=== PATIENT | female | born 2000 | race Caucasian/White ===

== ENCOUNTER 2018-07-23 15:28 | Emergency (ER) | payer OTHER ==
[2018-07-23 16:30] VITALS: BP 136/68
--- NOTE | 2018-07-23 16:58 | UC ---
Complaint Female HPI - HPI Summary HPI Summary: The patient is a 18-year-old female that presents here with dysuria times about 24 hours. She also has urgency and frequency. She states that she has had a vaginal discharge. She denies any fever or chills. She has had Bv in the past. She wants to do a self SwaB to test for BV as well as trICH. She has had no nausea vomiting or diarrhea. She states she has taken Keflex in the past without any problems. She requests a liquid antibiotic. - History Of Current Complaint Chief Complaint: UCGU Stated Complaint: URINARY Time Seen by Provider: 07/23/18 16:28 Hx Obtained From: Patient Hx Last Menstrual Period: 07/12/18 Onset/Duration: Gradual Onset, Lasting Days Timing: Constant Severity Initially: Moderate Severity Currently: None Pain Intensity: 8 - when urinating Pain Scale Used: 0-10 Numeric Character: Burning Aggravating Factor(s): Urination Alleviating Factor(s): Nothing Associated Signs And Symptoms: Positive: Vaginal Discharge. Negative: Fever, Back Pain, Vaginal Bleeding/Discharge, Nausea, Vomiting(# Of Episodes =), Genital Swelling, Genital Blisters, Retained Foregin Body (Specify) - Allergies/Home Medications Allergies/Adverse Reactions: Allergies Allergy/AdvReac Type Severity Reaction Status Date / Time Penicillins Allergy Severe Anaphylatic Verified 07/23/18 16:31 Shock sulfamethoxazole Allergy Intermediate Hives Verified 07/23/18 16:31 [From Bactrim] trimethoprim [From Bactrim] Allergy Intermediate Hives Verified 07/23/18 16:31 PMH/Surg Hx/FS Hx/Imm Hx Previously Healthy: Yes - Surgical History Surgical History: Yes Surgery Procedure, Year, and Place: finger - age 3 - Family History Known Family History: Positive: Hypertension - Social History Alcohol Use: Occasionally Substance Use Type: None Smoking Status (MU): Never Smoked Tobacco Review of Systems All Other Systems Reviewed And Are Negative: Yes Constitutional: Positive: Negative Skin: Positive: Negative Eyes: Positive: Negative ENT: Positive: Negative Respiratory: Positive: Negative Cardiovascular: Positive: Negative Gastrointestinal: Positive: Negative Genitourinary: Positive: Dysuria, Frequency, Urgency, Vaginal/Penile Discharge Motor: Positive: Negative Neurovascular: Positive: Negative Musculoskeletal: Positive: Negative Neurological: Positive: Negative Psychological: Positive: Negative Physical Exam Triage Information Reviewed: Yes Appearance: Well-Appearing, No Pain Distress, Well-Nourished Vital Signs: Initial Vital Signs Temp 98.4 F 07/23/18 16:26 Pulse 76 07/23/18 16:26 Resp 20 07/23/18 16:26 BP 136/68 07/23/18 16:26 Pulse Ox 100 07/23/18 16:26 Vital Signs Reviewed: Yes Eyes: Positive: Conjunctiva Clear ENT: Positive: Hearing grossly normal. Negative: Nasal congestion, Nasal drainage, Trismus, Muffled voice, Hoarse voice Neck: Positive: Supple, Nontender, No Lymphadenopathy Respiratory: Positive: Lungs clear, Normal breath sounds, No respiratory distress, No accessory muscle use Cardiovascular: Positive: RRR, No Murmur Musculoskeletal: Positive: ROM Intact, No Edema Neurological: Positive: Alert, Muscle Tone Normal Psychological Exam: Normal Skin Exam: Normal Diagnostics - Laboratory Diagnostic Studies Completed/Ordered: UA ++ leuks Complaint Female Dx - Differential Dx/Diagnosis Provider Diagnosis: Dysuria Discharge - Sign-Out/Discharge Documenting (check all that apply): Patient Departure All imaging exams completed and their final reports reviewed: No Studies - Discharge Plan Condition: Stable Disposition: HOME Patient Education Materials: Dysuria (ED) Referrals: Yoni Jaffe PA [Primary Care Provider] - 3 Days (if not better) - Billing Disposition and Condition Condition: STABLE Disposition: Home
--- NOTE | 2018-07-25 07:12 | UC ---
- Progress Note Progress Note: uine + E coli Pt on cephalexin await sensitivity no change [id number] 07/25/18 Course/Dx - Diagnoses Provider Diagnoses: Dysuria Discharge - Sign-Out/Discharge Documenting (check all that apply): Post-Discharge Follow Up All imaging exams completed and their final reports reviewed: No Studies - Discharge Plan Condition: Stable Disposition: HOME Prescriptions: Cephalexin SUSP* [Keflex SUSP 250 MG/5 ML*] 500 mg PO BID #100 oral.susp Patient Education Materials: Dysuria (ED) Referrals: Yoni Jaffe PA [Primary Care Provider] - 3 Days (if not better) Additional Instructions: tests pending - Billing Disposition and Condition Condition: STABLE Disposition: Home
--- NOTE | 2018-07-25 07:16 | UC ---
- Progress Note Progress Note: + Gardnerella neg trich neg manuel sent Rx Flagyl please call pt confirm not before starting medication d/w pt no ETOH 48 hours before and after taking med Course/Dx - Diagnoses Provider Diagnoses: Dysuria Discharge - Sign-Out/Discharge Documenting (check all that apply): Post-Discharge Follow Up All imaging exams completed and their final reports reviewed: No Studies - Discharge Plan Condition: Stable Disposition: HOME Prescriptions: Cephalexin SUSP* [Keflex SUSP 250 MG/5 ML*] 500 mg PO BID #100 oral.susp metroNIDAZOLE [Flagyl] 500 mg PO BID #14 tablet Patient Education Materials: Dysuria (ED) Referrals: Yoni Jaffe PA [Primary Care Provider] - 3 Days (if not better) Additional Instructions: tests pending - Billing Disposition and Condition Condition: STABLE Disposition: Home
== END 2018-07-23 17:12 | disposition home or self-care (01) ==
LOC: UCCORT 15:28
DX: R30.0 Dysuria (principal); Z88.0 Allergy status to penicillin; Z88.1 Allergy status to other antibiotic agents
CPT/HCPCS: 81003; 87077; 87086; 87186; 87480; 87491; 87510; 87591; 87660; 99212; G0463

== ENCOUNTER 2018-12-16 12:49 | Emergency (ER) | payer OTHER ==
[2018-12-16 13:24] VITALS: BP 131/111
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
[2018-12-17 09:43] LABS: Hepatitis C Antibody Nonreactive (Nonreactive)
[2018-12-17 12:57] LABS: Neisseria gonorrhoeae (GC) RNA Negative (Negative)
== END 2018-12-16 14:02 | disposition home or self-care (01) ==
LOC: UCCORT 12:49
DX: Z20.2 Contact with and (suspected) exposure to infections with a predominantly sexual mode of transmission (principal); Z88.0 Allergy status to penicillin; Z88.2 Allergy status to sulfonamides; Z88.8 Allergy status to other drugs, medicaments and biological substances
CPT/HCPCS: 36415; 81003; 84702; 86703; 86780; 86803; 87480; 87491; 87510; 87591; 87660; 99211; G0463

== ENCOUNTER 2019-02-25 11:38 | Emergency (ER) | payer OTHER ==
[2019-02-25 12:04] VITALS: BP 136/81
--- NOTE | 2019-02-25 12:38 | UC ---
Complaint Female HPI - HPI Summary HPI Summary: pt. is here for STD testings recent dx of Chlamydia , was placed on zithromax has mild dysuria but no vaginal discharge, no pelvic pain , no vaginal lesions requesting to be tested for Hep B, C, HIV, HSV 1/2 T. Vaginalis - History Of Current Complaint Chief Complaint: UCGU Stated Complaint: PERSONAL Time Seen by Provider: 02/25/19 12:09 Hx Obtained From: Patient Hx Last Menstrual Period: DOES NOT HAVE REG PERIODS, USES DEPO ?: No Onset/Duration: Gradual Onset, Lasting Days - 3, Resolved Timing: Constant Severity Initially: Mild Severity Currently: Mild Pain Intensity: 1 Character: Burning Aggravating Factor(s): Urination Alleviating Factor(s): Nothing Associated Signs And Symptoms: Positive: Negative. Negative: Fever, Back Pain, Vaginal Bleeding/Discharge, Vaginal Discharge, Nausea, Vomiting(# Of Episodes =) , Genital Swelling, Genital Blisters, Retained Foregin Body (Specify) - Allergies/Home Medications Allergies/Adverse Reactions: Allergies Allergy/AdvReac Type Severity Reaction Status Date / Time Penicillins Allergy Severe Anaphylatic Verified 02/25/19 11:50 Shock sulfamethoxazole Allergy Intermediate Hives Verified 02/25/19 11:50 [From Bactrim] trimethoprim [From Bactrim] Allergy Intermediate Hives Verified 02/25/19 11:50 PMH/Surg Hx/FS Hx/Imm Hx Previously Healthy: Yes - Surgical History Surgical History: Yes Surgery Procedure, Year, and Place: finger - age 3 - Family History Known Family History: Positive: Hypertension - Social History Alcohol Use: Occasionally Substance Use Type: None Smoking Status (MU): Never Smoked Tobacco Have You Smoked in the Last Year: No - Immunization History Vaccination Up to Date: Yes Review of Systems All Other Systems Reviewed And Are Negative: Yes Constitutional: Positive: Negative Skin: Positive: Negative Eyes: Positive: Negative ENT: Positive: Negative Respiratory: Positive: Negative Genitourinary: Positive: Dysuria. Negative: Hematuria, Frequency, Urgency, Vaginal/Penile Burning, Vaginal/Penile Itching, Vaginal/Penile Discharge, Vaginal/Penile Pain, Vaginal/Penile Tenderness, Ulceration/Lesion Is Patient Immunocompromised?: No Physical Exam Triage Information Reviewed: Yes Appearance: Well-Appearing, No Pain Distress, Well-Nourished Vital Signs: Initial Vital Signs Temp 99 F 02/25/19 11:50 Pulse 75 02/25/19 11:50 Resp 16 02/25/19 11:50 BP 136/81 02/25/19 11:50 Pulse Ox 100 02/25/19 11:50 Vital Signs Reviewed: Yes Eye Exam: Normal Eyes: Positive: Conjunctiva Clear ENT: Positive: Normal ENT inspection, Hearing grossly normal, Pharynx normal Respiratory: Positive: Chest non-tender, Lungs clear, Normal breath sounds Cardiovascular: Positive: RRR, No Murmur, Pulses Normal Pelvic Exam: Positive: Other - not done Skin Exam: Normal Complaint Female Dx - Differential Dx/Diagnosis Provider Diagnosis: STD (female) Discharge - Sign-Out/Discharge Documenting (check all that apply): Patient Departure All imaging exams completed and their final reports reviewed: No Studies - Discharge Plan Condition: Stable Disposition: HOME Patient Education Materials: Sexually Transmitted Diseases (ED) Referrals: Yoni Jaffe PA [Primary Care Provider] - 7 Days Additional Instructions: please call the office in 2 days for your lab results - Billing Disposition and Condition Condition: STABLE Disposition: Home
[2019-02-25 20:16] LABS: Hepatitis B Surface Antigen Negative (Negative)
[2019-02-25 20:28] LABS: HIV 4th Generation Negative (Negative)
[2019-02-25 20:33] LABS: Hepatitis B Surface Ab Not Immune (Immune)
[2019-02-25 20:34] LABS: Hepatitis C Antibody Negative (Negative)
--- NOTE | 2019-02-26 07:49 | UC ---
- Progress Note Progress Note: Most of the lab work from February 25, 2019 comes back. There is a syphilis IgG that is still pending. Comes back negative for HIV negative for hepatitis C. Also comes back negative for hepatitis B. Patient comes back not immune for hepatitis B. Nursing to call patient inform the patient they're not immune for hepatitis B and should consider getting immunized for hepatitis B. We'll also need to let them know that the syphilis results are still pending. Informing the patient of the results of the HIV should be per HIV protocol. Course/Dx - Diagnoses Provider Diagnoses: STD (female) Discharge - Sign-Out/Discharge Documenting (check all that apply): Patient Departure All imaging exams completed and their final reports reviewed: No Studies - Discharge Plan Condition: Stable Disposition: HOME Patient Education Materials: Sexually Transmitted Diseases (ED) Referrals: Yoni Jaffe PA [Primary Care Provider] - 7 Days Additional Instructions: please call the office in 2 days for your lab results - Billing Disposition and Condition Condition: STABLE Disposition: Home
[2019-02-27 12:12] LABS: Herpes Simplex Virus I IgG AB Negative (Negative); Herpes Simplex Virus II IgG AB Negative (Negative)
== END 2019-02-25 13:10 | disposition home or self-care (01) ==
LOC: UCCORT 11:38
DX: A64 Unspecified sexually transmitted disease (principal); Z01.84 Encounter for antibody response examination; R30.0 Dysuria
CPT/HCPCS: 36415; 86694; 86695; 86696; 86706; 86780; 86803; 87340; 87389; 87661; 99211; G0463

== ENCOUNTER 2019-03-24 15:05 | Emergency (ER) | payer OTHER ==
[2019-03-24 15:20] VITALS: BP 119/69
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
[2019-03-26 00:26] LABS: Chlamydia trachomatis NAA Negative (Negative); Neisseria gonorrhoeae (GC) NAA Negative (Negative)
--- NOTE | 2019-03-26 14:18 | UC ---
- Progress Note Progress Note: I spoke with the patient and gave her the negative test results for gonorrhea, chlamydia and urine culture was negative. I advised her to keep her point with Dr. Melgoza her director federal tomorrow. Course/Dx - Diagnoses Provider Diagnoses: Dysuria Discharge - Sign-Out/Discharge Documenting (check all that apply): Post-Discharge Follow Up All imaging exams completed and their final reports reviewed: No Studies - Discharge Plan Condition: Good Disposition: HOME Patient Education Materials: Dysuria (ED) Referrals: Yoni Jaffe PA [Primary Care Provider] - Additional Instructions: Make an appointment with your primary care provider to discuss the thyroid issues and possible anemia. You may want to talk with the pharmacist vomiting and daily iron pill. Follow-up with your [employer] provider regarding the Depo- Provera issues. Limit your Gatorade to only to a day and then drink plenty of water. We will call you with the results of your urine test. - Billing Disposition and Condition Condition: GOOD Disposition: Home
== END 2019-03-24 16:28 | disposition home or self-care (01) ==
LOC: UCCORT 15:05
DX: R30.0 Dysuria (principal); D64.9 Anemia, unspecified; Z91.19 Patient's noncompliance with other medical treatment and regimen
CPT/HCPCS: 81003; 84702; 87086; 87491; 87591; 99211; G0463

== ENCOUNTER 2019-06-09 12:40 | Emergency (ER) | payer OTHER ==
--- NOTE | 2019-06-09 15:11 | UC ---
Complaint Female HPI - HPI Summary HPI Summary: Patient is a 19-year-old female presenting with burning sensation of vulva with urination and increased amount of vaginal discharge x1 week. Patient states she initially thought it was a UTI but does not believe so anymore. Denies blood in the urine. Denies abdominal or pelvic pain, pressure, or discomfort. Denies malodorous discharge. Denies abnormal bleeding. Denies itching. Notes new partner recently and states she would like to be tested for STIs. Patient notes history of recurrent BV. LMP May 13 and is on control patch. - History Of Current Complaint Stated Complaint: URINARY Hx Obtained From: Patient Hx Last Menstrual Period: 02/26/19 Onset/Duration: Gradual Onset, Lasting Days - Allergies/Home Medications Allergies/Adverse Reactions: Allergies Allergy/AdvReac Type Severity Reaction Status Date / Time Penicillins Allergy Severe Anaphylatic Verified 06/09/19 15:07 Shock sulfamethoxazole Allergy Intermediate Hives Verified 06/09/19 15:07 [From Bactrim] trimethoprim [From Bactrim] Allergy Intermediate Hives Verified 06/09/19 15:07 Home Medications: Home Medications Norelgestromin/Ethin.estradiol [Xulane Patch] 1 each TD SEE INSTRUCTIONS [History Confirmed 06/09/19] PMH/Surg Hx/FS Hx/Imm Hx Previously Healthy: Yes - Surgical History Surgical History: Yes Surgery Procedure, Year, and Place: finger - age 3 - Family History Known Family History: Positive: Hypertension - Social History Alcohol Use: Occasionally Substance Use Type: None Smoking Status (MU): Never Smoked Tobacco Have You Smoked in the Last Year: No - Immunization History Vaccination Up to Date: Yes Review of Systems All Other Systems Reviewed And Are Negative: Yes Constitutional: Positive: Negative. Negative: Fever, Chills Skin: Positive: Negative. Negative: Rash Respiratory: Positive: Negative Cardiovascular: Positive: Negative Gastrointestinal: Positive: Negative. Negative: Abdominal Pain, Vomiting, Nausea Genitourinary: Positive: Dysuria, Vaginal/Penile Burning, Vaginal/Penile Discharge. Negative: Hematuria, Frequency, Urgency, Vaginal/Penile Itching, Vaginal/Penile Pain, Vaginal/Penile Tenderness, Ulceration/Lesion, Abnormal Bleeding Musculoskeletal: Positive: Negative Neurological: Positive: Negative Physical Exam Triage Information Reviewed: Yes Appearance: Well-Appearing, No Pain Distress, Well-Nourished Vital Signs: Lab Results 06/09/19 06/09/19 Range/Units 15:21 15:24 POC Urine Color Yellow POC Urine Clarity Clear POC Urine pH 6.0 (5-9) POC Ur Specif [place] 1.025 (1.010-1.030) POC Urine Protein Negative (Negative) POC Ur Glucose (UA) Negative (Negative) POC Urine Ketones Negative (Negative) POC Urine Blood Negative (Negative) POC Urine Nitrite Negative (Negative) POC Urine Bilirubin Negative (Negative) POC Urine Urobilinogen 0.2 (Negative) POC U Leukocyte Esteras Negative (Negative) POC Ur Test Negative (Negative) Vital Signs (72 hours) 06/09/19 15:09 Temperature 99 F Pulse Rate 79 Respiratory 16 Rate Blood Pressure 124/68 (mmHg) O2 Sat by Pulse 100 Oximetry Vital Signs Reviewed: Yes Eyes: Positive: Conjunctiva Clear ENT: Positive: Hearing grossly normal Neck: Positive: Supple Respiratory: Positive: No respiratory distress Abdominal Exam: Normal Abdomen Description: Positive: Nontender. Negative: CVA Tenderness (R), CVA Tenderness (L) Pelvic Exam: Positive: External Exam Normal, Bimanual Exam Normal, No Cerv. Motion Tender, No Masses, Discharge - copious amount of thin white discharge. Negative: Active Bleeding, Blood, Cervicitis, Lesions, Tender Adnexa, Tender Uterus, Ulcers Neurological: Positive: Alert Psychological: Positive: Age Appropriate Behavior Skin Exam: Normal Complaint Female Dx - Course Course Of Treatment: Patient verbally consented to pelvic exam. ANN Juan helped with the pelvic exam. Patient tolerated exam well. UA and UA preg both negative. Based on history of recurrent BV and physical exam findings I am treating the patient with metronidazole gel for bacterial vaginosis. Patient prefers gel over pills. She was tested for yeast, BV, Trichomonas, G/C, syphilis, HIV. Informed patient that she'll be notified with any positive results that warrant a change in treatment. Instructed to follow up with [facility]. Patient voiced understanding and agreed with the treatment plan. - Differential Dx/Diagnosis Provider Diagnosis: BV (bacterial vaginosis) Discharge ED - Sign-Out/Discharge Documenting (check all that apply): Patient Departure All imaging exams completed and their final reports reviewed: No Studies - Discharge Plan Condition: Stable Disposition: HOME Prescriptions: metroNIDAZOLE [Metronidazole 0.75 % gel] 1 applic VAGINAL DAILY 5 Days #1 gel Patient Education Materials: Sexually Transmitted Diseases (ED), Bacterial Vaginosis (ED) Referrals: Gisell Borjas PA [Primary Care Provider] - If Needed Additional Instructions: As discussed, you are being treated for bacterial vaginosis with metronidazole gel. Do not consume alcohol while using this gel. You received testing for yeast, BV, trichomonas, gonorrhea, chlamydia, HIV, and syphilis. You will be notified with any positive results that warrant a change in treatment. Follow-up with your [facility] as soon as possible for further evaluation of recurrent symptoms. - Billing Disposition and Condition Condition: STABLE Disposition: Home
[2019-06-09 15:14] VITALS: BP 124/68
[2019-06-10 12:49] LABS: Chlamydia trachomatis NAA Negative (Negative); Neisseria gonorrhoeae (GC) NAA Negative (Negative)
[2019-06-10 14:02] LABS: HIV 4th Generation Nonreactive (Nonreactive)
== END 2019-06-09 16:05 | disposition home or self-care (01) ==
LOC: UCCORT 12:40
DX: N76.0 Acute vaginitis (principal); B96.89 Other specified bacterial agents as the cause of diseases classified elsewhere; Z88.0 Allergy status to penicillin; Z88.2 Allergy status to sulfonamides
CPT/HCPCS: 36415; 81003; 84702; 86780; 87389; 87480; 87491; 87510; 87591; 87661; 99212; G0463

== ENCOUNTER 2019-08-17 14:26 | Emergency (ER) | payer OTHER ==
[2019-08-17 15:12] VITALS: BP 126/86
--- NOTE | 2019-08-17 15:21 | UC ---
Throat Pain/Nasal Timi HPI - HPI Summary HPI Summary: 19-year-old female presents with a day history of nasal congestion, sinus pressure, bilateral ear fullness, and occasional productive cough. States over the past 2-3 days symptoms have been progressively worsening and that her nasal discharge has changed from clear to yellowish-green color. She has been taking [id number] Sudafed with some relief in symptoms. Denies fever, chills, sore throat, chest pain, or shortness of breath. - History of Current Complaint Chief Complaint: UCGeneralIllness Stated Complaint: SINUS Time Seen by Provider: 08/17/19 15:00 Hx Obtained From: Patient Hx Last Menstrual Period: 07/16/19 Pain Intensity: 0 - Allergies/Home Medications Allergies/Adverse Reactions: Allergies Allergy/AdvReac Type Severity Reaction Status Date / Time Penicillins Allergy Severe Anaphylatic Verified 08/17/19 15:12 Shock sulfamethoxazole Allergy Intermediate Hives Verified 08/17/19 15:12 [From Bactrim] trimethoprim [From Bactrim] Allergy Intermediate Hives Verified 08/17/19 15:12 Home Medications: Home Medications Cyanocobalamin INJ * [Vitamin B12 INJ *] 1,000 mcg IM MONTHLY 08/17/19 [History Confirmed 08/17/19] PMH/Surg Hx/FS Hx/Imm Hx Previously Healthy: Yes - Denies significant PMH - Surgical History Surgical History: Yes Surgery Procedure, Year, and Place: finger - age 3 - Family History Known Family History: Positive: Hypertension - Social History Occupation: Employed Full-time Lives: Alone Alcohol Use: Occasionally Substance Use Type: None Smoking Status (MU): Never Smoked Tobacco Have You Smoked in the Last Year: No - Immunization History Vaccination Up to Date: Yes Review of Systems All Other Systems Reviewed And Are Negative: Yes Constitutional: Negative: Fever, Chills Skin: Negative: Rash Eyes: Negative: Drainage, Eye Redness ENT: Positive: Ear Ache, Nasal Discharge, Sinus Congestion, Sinus Pain/ Tenderness. Negative: Sore Throat Respiratory: Positive: Cough. Negative: Shortness Of Breath Cardiovascular: Negative: Palpitations, Chest Pain Gastrointestinal: Negative: Abdominal Pain, Vomiting, Diarrhea, Nausea Genitourinary: Positive: Negative Musculoskeletal: Positive: Negative Neurological: Positive: Negative Is Patient Immunocompromised?: No Physical Exam - Summary Physical Exam Summary: GENERAL APPEARANCE: Well developed, well nourished, alert and cooperative, and appears to be in no acute distress. EYES: Conjunctiva clear. No drainage. EARS: Patient declined to have ears examined. NOSE: Moderate nasal congestion. No nasal discharge. Frontal and maxillary sinus tenderness. THROAT: Pharynx normal. No tonsilar inflammation, swelling, exudate, or lesions. Uvula midline. NECK: Neck supple, non-tender without lymphadenopathy. CARDIAC: Normal S1 and S2. No S3, S4 or murmurs. Rhythm is regular. There is no peripheral edema, cyanosis or pallor. Extremities are warm and well perfused. Capillary refill is less than 2 seconds. Peripheral pulses intact. LUNGS: Clear to auscultation without rales, rhonchi, wheezing or diminished breath sounds. ABDOMEN: Positive bowel sounds. Soft, nondistended, nontender. No guarding or rebound. No masses or hepatosplenomegally. MUSKULOSKELETAL: ROM intact to all extremities. No joint erythema or tenderness. Normal muscular development. Normal gait. SKIN: Skin normal color, texture and turgor with no lesions or eruptions. Triage Information Reviewed: Yes Vital Signs: Initial Vital Signs Temp 98.8 F 08/17/19 15:08 Pulse 110 08/17/19 15:08 Resp 16 08/17/19 15:08 BP 126/86 08/17/19 15:08 Pulse Ox 100 08/17/19 15:08 Vital Signs Reviewed: Yes Throat Pain/Nasal Course/Dx - Course Course Of Treatment: 19-year-old female presents with a day history of nasal congestion, sinus pressure, bilateral ear fullness, and occasional productive cough. States over the past 2-3 days symptoms have been progressively worsening and that her nasal discharge has changed from clear to yellowish-green color. She has been taking [id number] Sudafed with some relief in symptoms. Denies fever, chills, sore throat, chest pain, or shortness of breath. Afebrile. Mild tachycardic otherwise vital signs stable. Patient had moderate nasal congestion, maxillary and frontal sinus tenderness, normal pharynx, clear bilateral breath sounds, and otherwise unremarkable exam. Considering the worsening of symptoms will treat for an acute sinusitis with secondary bacterial infection with doxycycline 100 mg BID x 7 days as well as recommend symptomatic treatment. She is to return here of follow up with her PCP in 3-5 days if no improvement in symptoms. Anticipatory guidance and warning symptoms reviewed with patient. Verbalizes understanding and agrees with POC. - Differential Dx/Diagnosis Differential Diagnosis/HQI/PQRI: Sinusitis, URI Provider Diagnosis: Acute sinusitis Discharge ED - Sign-Out/Discharge Documenting (check all that apply): Patient Departure All imaging exams completed and their final reports reviewed: No Studies - Discharge Plan Condition: Stable Disposition: HOME Prescriptions: Doxycycline Calcium [Vibramycin] 100 mg PO BID 7 Days #1 syrup Fluticasone NASAL SPRAY 50MCG* [Flonase NASAL SPRAY 50MCG*] 2 spray BOTH NARES DAILY #1 btl Patient Education Materials: Sinusitis (ED) Forms: *Work Release Referrals: Gisell Borjas PA [Primary Care Provider] - 3 Days Additional Instructions: Your history and exam are consistent with a sinus infection. Start doxycycline 100 mg twice a day for 7 days. Drink plenty of fluids to avoid dehydration especially if you are running any fever. Use a saline rinse kit such as Neti Pot or NeilMed at least twice a day to help thin secretions and promote drainage of the sinuses. Use fluticasone (Flonase) nasal spray 2 sprays each nostril once daily. Use an over the counter decongestant such as Sudafed according to directions to help with congestion. Take over the counter acetaminophen (Tylenol) or ibuprofen (Advil, Motrin) according to directions as needed for pain or fever. Follow up with your primary care provider in 3-5 days if symptoms persist. Seek immediate medical attention in the emergency room if you have fever greater than 100.5 F despite taking acetaminophen or ibuprofen, have chest pain , difficulty breathing, are unable to swallow, or have any worsening of symptoms. - Billing Disposition and Condition Condition: STABLE Disposition: Home
== END 2019-08-17 15:38 | disposition home or self-care (01) ==
LOC: UCCORT 14:26
DX: J01.90 Acute sinusitis, unspecified (principal); Z88.0 Allergy status to penicillin; Z88.2 Allergy status to sulfonamides; Z88.1 Allergy status to other antibiotic agents
CPT/HCPCS: 99212; G0463

== ENCOUNTER 2019-09-29 08:44 | Emergency (ER) | payer OTHER ==
[2019-09-29 09:10] VITALS: BP 121/61
--- NOTE | 2019-09-29 09:31 | UC ---
Throat Pain/Nasal Timi HPI - HPI Summary HPI Summary: [id number] woman comes in with a chief complaint of sinusitis symptoms for about 5 days. She was taking Sudafed which is not helping. The congestion is better after shower. She is having green rhinorrhea with blood in it. Also cough chest congestion postnasal drip. Mild sore throat. At the beginning of the illness her tonsils were enlarged with exudates. - History of Current Complaint Chief Complaint: UCRespiratory Stated Complaint: SINUS PRESSURE Time Seen by Provider: 09/29/19 09:19 Hx Last Menstrual Period: unknown Pain Intensity: 0 - Allergies/Home Medications Allergies/Adverse Reactions: Allergies Allergy/AdvReac Type Severity Reaction Status Date / Time Penicillins Allergy Severe Anaphylatic Verified 09/29/19 09:04 Shock sulfamethoxazole Allergy Intermediate Hives Verified 09/29/19 09:04 [From Bactrim] trimethoprim [From Bactrim] Allergy Intermediate Hives Verified 09/29/19 09:04 Home Medications: Home Medications Ascorbic Acid TAB* [Vitamin C TAB*] 500 mg PO DAILY 09/29/19 [History Confirmed 09/29/19] Biotin 2 tab PO DAILY 09/29/19 [History Confirmed 09/29/19] Iron Infusion 1 dose IV WEEKLY 09/29/19 [History] Multivitamin with Minerals [One Daily Complete] 2 each PO DAILY 09/29/19 [ History Confirmed 09/29/19] PMH/Surg Hx/FS Hx/Imm Hx Previously Healthy: Yes - Surgical History Surgical History: Yes Surgery Procedure, Year, and Place: finger - age 3 - Family History Known Family History: Positive: Hypertension - Social History Alcohol Use: Occasionally Substance Use Type: None Smoking Status (MU): Never Smoked Tobacco Have You Smoked in the Last Year: No - Immunization History Vaccination Up to Date: Yes Review of Systems All Other Systems Reviewed And Are Negative: Yes Constitutional: Positive: Other - SEE HPI Skin: Positive: Negative Eyes: Positive: Negative ENT: Positive: Sore Throat, Nasal Discharge, Sinus Congestion, Sinus Pain/ Tenderness Respiratory: Positive: Cough Cardiovascular: Positive: Negative Gastrointestinal: Positive: Negative Motor: Positive: Negative Neurovascular: Positive: Negative Musculoskeletal: Positive: Negative Neurological/Mental Status: Positive: Negative Psychological: Positive: Negative Is Patient Immunocompromised?: No Physical Exam Triage Information Reviewed: Yes Appearance: Well-Appearing, No Pain Distress, Well-Nourished Vital Signs: Initial Vital Signs Temp 99.4 F 09/29/19 09:07 Pulse 93 09/29/19 09:07 Resp 15 09/29/19 09:07 BP 121/61 09/29/19 09:07 Pulse Ox 100 09/29/19 09:07 Vital Signs Reviewed: Yes Eye Exam: Normal Eyes: Positive: Conjunctiva Clear ENT: Positive: Pharyngeal erythema, Nasal congestion, Nasal drainage, Tonsillar swelling - 2+ B/L, Other - Patient declined ear exam Neck: Positive: Supple Respiratory: Positive: Lungs clear, Normal breath sounds, No respiratory distress Cardiovascular: Positive: RRR Musculoskeletal: Positive: Strength Intact, ROM Intact Neurological: Positive: Alert, Muscle Tone Normal Psychological: Positive: Age Appropriate Behavior Skin Exam: Normal Throat Pain/Nasal Course/Dx - Course Course Of Treatment: Discussed viral versus bacterial infections and the role of antibiotics. Patient prefers to be on antibiotics at this time. She prefers liquid medication so therefore the doxycycline as it is liquid form. She reports she still has the Flonase that she can use in this illness. Recommended avoiding Sudafed now as if is not effective with a couple of days To make things worse. Discussed symptomatic treatment with increase fluids and steam. Follow-up primary care doctor get reevaluated sooner if worse or any questions concerns. - Differential Dx/Diagnosis Provider Diagnosis: Sinusitis Discharge ED - Sign-Out/Discharge Documenting (check all that apply): Patient Departure All imaging exams completed and their final reports reviewed: No Studies - Discharge Plan Condition: Stable Disposition: HOME Prescriptions: Doxycycline Calcium [Vibramycin] 100 mg PO BID #200 ml Patient Education Materials: Sinusitis (ED) Referrals: Gisell Borjas PA [Primary Care Provider] - Additional Instructions: FOLLOW UP WITH YOUR DOCTOR IF NOT COMPLETELY IMPROVED. GET REEVALUATED SOONER IF NOT IMPROVED OR WORSE OR ANY QUESTIONS OR CONCERNS. - Billing Disposition and Condition Condition: STABLE Disposition: Home
== END 2019-09-29 09:38 | disposition home or self-care (01) ==
LOC: UCCORT 08:44
DX: J32.9 Chronic sinusitis, unspecified (principal); J02.9 Acute pharyngitis, unspecified; Z88.0 Allergy status to penicillin; Z88.2 Allergy status to sulfonamides
CPT/HCPCS: 99212; G0463